=== PATIENT | male | born 1965 | race Caucasian/White ===

== ENCOUNTER 2024-01-27 02:36 | Emergency (ER) | payer OTHER, MEDICAID ==
[~2024-01-27] VITALS: Ht 190.5 cm; Wt 108.9 kg
[2024-01-27 02:46] VITALS: BP 154/82
[2024-01-27 03:45] VITALS: PULSE 82
[2024-01-27] MEDS ORDERED: DexAMETHasone 4 MG TAB PO ONE (03:45)
[2024-01-27] MEDS ORDERED: DOXY-286 PO (03:54)
[2024-01-27] MEDS ORDERED: DEX4T PO (03:54)
[2024-01-27] MEDS ORDERED: ALBUAER3 IN (03:54)
[2024-01-27 03:59] LABS: Base Excess 0.9 mmol/L (-2.0-2.0)
[2024-01-27] MEDS: ALBUTEROL SULF 2.5 MG/0.5ML(0.5%) NEB SOLN NEB ONE (04:02)
[2024-01-27] MEDS: BUDESONIDE (INHALATION) 0.5 MG/2 ML NEB NEB ONE (04:02)
[2024-01-27] MEDS: IPRATROPIUM BROM 0.5 MG/2.5ML INH SOL NEB ONE (04:02)
[2024-01-27 04:03] VITALS: RESP 20; O2SAT 94
[2024-01-27] MEDS: DOXYCYCLINE 100 MG TAB/CAP PO ONE (04:41)
[2024-01-27] MEDS: DexAMETHasone SOD PHOS 10MG/1ML VIAL INJ IM ONE (04:43)
== END 2024-01-27 04:49 | disposition home or self-care (01) ==
LOC: ER 02:36 → EDBD 02:36 → ER 04:49
DX: J44.1 Chronic obstructive pulmonary disease with (acute) exacerbation (principal)
CPT/HCPCS: 71045; 93005; 94640; 96372; 99283; J1100; J7644

== ENCOUNTER 2024-08-05 02:37 | Emergency (ER) | payer MEDICAID, OTHER ==
[~2024-08-05] VITALS: Ht 190.5 cm; Wt 104.5 kg
[~2024-08-05 02:37] MED LIST: ALBUAER3 IN; DEX4T PO; DOXY-286 PO
[2024-08-05 03:05] VITALS: PULSE 76
[2024-08-05 03:15] LABS: Basophils # (auto) 0.1 10 ^3/uL (0-0.2); Basophils % (auto) 0.9 % (0.0-2.0); Eosinophils # (auto) 0.4 10 ^3/uL (0-0.8); Eosinophils % (auto) 4.4 % (0.0-7.0); Hematocrit 48.1 % (41.0-53.0); Hemoglobin 16.8 g/dL (13.5-17.5); Mean Corpuscular Hemoglobin 30.7 pg (28.0-32.0); Mean Corpuscular Hgb Conc. 34.9 g/dL (32.0-36.0); Monocytes # (auto) 0.8 10 ^3/uL (0-1.3); Monocytes % (auto) 7.8 % (0.0-12.0); Neutrophils # (auto) 5.4 10 ^3/uL (1.6-8.6); Neutrophils % (auto) 55.9 % (37.0-80.0); Nucleated Red Blood Cells % 0.1 %; Platelet Count (auto) 325 10^3/uL (140-450); Red Blood Cells 5.47 10^6/uL (4.5-5.90); Red Cell Distribution Width 13.7 % (11.8-14.3); White Blood Cell 9.6 10^3/uL (4.4-10.8)
[2024-08-05 03:29] LABS: Alanine Aminotransferase 25 U/L (7-40); Albumin 4.7 g/dL (3.2-4.8); Alkaline Phosphatase 98 U/L (46-116); Anion Gap 6 (5-15); Aspartate Aminotransferase 16 U/L (13-40); BUN/Creatinine Ratio 11.5 (10.0-20.0); Bilirubin, Total 0.7 mg/dL (0.2-1.0); Blood Urea Nitrogen 14 mg/dL (9-23); Calcium 9.9 mg/dL (8.7-10.4); Carbon Dioxide 27 mmol/L (20-30); Chloride 104 mmol/L (98-107); Glucose 99 mg/dL (74-106); Potassium 4.4 mmol/L (3.5-5.1); Sodium 137 mmol/L (136-145); Total Protein 7.3 g/dL (5.7-8.2)
[2024-08-05 03:33] LABS: INR 1.01 (0.9-1.15); Partial Thromboplastin Time 31.1 SEC (24.5-34.5); Prothrombin Time 10.9 sec (9.3-11.8)
[2024-08-05] MEDS ORDERED: ALBUTEROL SULF 2.5 MG/0.5ML(0.5%) NEB SOLN NEB ONE (04:15)
[2024-08-05] MEDS: methylPREDNISolone SOD SUCC 125 MG/2 ML VL IV ONE (04:26)
[2024-08-05] MEDS: IPRATROPIUM BROM 0.5 MG/2.5ML INH SOL NEB ONE (04:34)
[2024-08-05 06:00] VITALS: BP 137/88; PULSE 76; RESP 14; O2SAT 93
[2024-08-05] MEDS ORDERED: AZIT-185 PO (06:08)
[2024-08-05] MEDS ORDERED: PRED20TA2 PO (06:08)
== END 2024-08-05 06:30 | disposition home or self-care (01) ==
LOC: EDBD 02:37 → ER 02:37
DX: J44.1 Chronic obstructive pulmonary disease with (acute) exacerbation (principal)
CPT/HCPCS: 36415; 71045; 80053; 83880; 84484; 85025; 85610; 85730; 93005; 94640; 96374; 99285; J2919

== ENCOUNTER 2025-08-27 00:53 | Emergency (ER) | payer MEDICAID ==
[~2025-08-27] VITALS: Ht 190.5 cm; Wt 90.0 kg
[~2025-08-27 00:53] MED LIST changes: +AZIT-185 PO; +PRED20TA2 PO
--- NOTE | 2025-08-27 01:12 | ED.PDOC ---
SOB-HPI HPI Comments 59-year-old male came to ER for shortness a breath. Patient does have history of COPD, on home oxygen at 3 L/min. Patient was supposed to go to sleep, when he felt sudden onset of shortness a breath with wheezing. Nebulizers taken offered no relief. EMS stated on arrival, patient was satting at 88% on oxygen. Patient received two breathing treatments in route and states good improvement of symptoms. Patient is saturating 94% at 3 L/min at time of evaluation. Patient is in no respiratory distress. Chief Complaint: Shortness a breath Time Seen by MD: 01:11 Reviewed notes: [employer] Notes Information Source: Patient, Emergency Med Personnel Mode of Arrival: EMS Severity: Moderate Timing: Minutes Duration: Since onset Context: At Rest PE Risk Factors: None History of: COPD Prehospital treatment: Breathing Tx Associated Signs and Symptoms: Wheeze Past Medical History PAST MEDICAL HISTORY: COPD Surgical History: Denies all surgeries Family History Family History: Reviewed,noncontributory to illness Social History Smoker: Non-Smoker Alcohol: Denies ETOH Use Drugs: Denies Drug Use Lives In: Home Constitutional: denies: chills, diaphoresis, fatigue, fever, malaise, sweats, weakness, others EENTM: denies: blurred vision, double vision, ear bleeding, ear discharge, ear drainage, ear pain, ear ringing, eye pain, eye redness, hearing loss, mouth pain, mouth swelling, nasal discharge, nose bleeding, nose congestion, nose pain, photophobia, tearing, throat pain, throat swelling, voice changes, others Respiratory: reports: SOB at rest, shortness of breath, wheezing; denies: cough, hemoptysis, orthopnea, SOB with excertion, stridor, others Cardiovascular: denies: chest pain, dizzy spells, diaphoresis, Dyspnea on exertion, edema, irregular heart beat, left arm pain, lightheadedness, palpitations, PND, syncope, others Gastrointestinal: denies: abdomen distended, abdominal pain, blood streaked bowels, constipated, diarrhea, dysphagia, difficulty swallowing, hematemesis, melena, nausea, poor appetite, poor fluid intake, rectal bleeding, rectal pain, vomiting, others Genitourinary: denies: burning, dysuria, flank pain, frequency, hematuria, incontinence, penile discharge, penile sore, pain, testicle pain, testicle swelling, urgency, others Neurological: denies: dizziness, fainting, headache, left sided numbness, left sided weakness, numbness, paresthesia, pre-existing deficit, right sided numbness, right sided weakness, seizure, speech problems, tingling, tremors, weakness, others Musculoskeletal: denies: back pain, gout, joint pain, joint swelling, muscle pain, muscle stiffness, neck pain, others Integumetry: denies: bruises, change in color, change in hair/nails, dryness, laceration, lesions, lumps, rash, wounds, others Allergic/Immunocompromised: denies: Difficulty Healing, Frequent Infections, Hives, Itching, others Hematologic/Lymphatic: denies: anemia, blood clots, easy bleeding, easy bruising, swollen glands, others Endocrine: denies: excessive hunger, excessive sweating, excessive thirst, excessive urination, flushing, intolerance to cold, intolerance to heat, unexplained weight gain, unexplained weight loss, others Psychiatric: denies: anxiety, bipolar disorder, depression, hopeless, panic disorder, schizophrenia, sleepless, suicidal, others Physical Exam General Appearance: Mild Distress (Patient was in some mild distress due to shortness a breath concerns at time of evaluation. Patient states good improvement of symptoms at time of evaluation.), Normal HEENT: Normal ENT Inspection, Pharynx Normal, TMs Normal Neck: Full Range of Motion, Non-Tender, Normal, Normal Inspection Respiratory: Chest Non-Tender, Lungs Clear, No Accessory Muscle Use, Respiratory Distress, Wheezing (Mild patchy wheezing appreciated in right middle lobe and right upper lobe.) Cardiovascular: No Edema, No JVD, No Murmur, No Gallop, Normal Peripheral Pulses, Regular Rate/Rhythm Breast Exam: Deferred Gastrointestinal: No Organomegaly, Non Tender, No Pulsatile Mass, Normal Bowel Sounds, Soft Genitalia: Deferred Pelvic: Deferred Rectal: Deferred Extremities: No calf tenderness, Normal capillary refill, Normal inspection, Normal range of motion, Non-tender, No pedal edema Musculoskeletal : Apperance: Normal Neurologic: Alert, No Motor Deficits, Normal Affect, Normal Mood, No Sensory Deficits Cerebellar Function: NOT DONE Reflexes: NOT DONE Skin: Dry, Normal Color, Warm Lymphatic: No Adenopathy EKG EKG : Pulse Rate (adult): 89 Cardiac Rhythm: NSR Was a procedure done? Was a procedure done?: No Differential Dx Differential Diagnosis: Asthma, Bronchitis, COPD, Pneumonia, Respiratory Distress X-Ray, Labs, Meds, VS Vital Signs Date Time Temp Pulse Resp B/P (MAP) Pulse Ox O2 Delivery O2 Flow Rate FiO2 08/27/25 02:02 88 08/27/25 01:14 89 08/27/25 00:57 89 08/27/25 00:53 98.5 89 20 130/83 95 98.5 X-Ray, Labs, Meds, VS Comment All studies performed the ED were evaluated by me personally. Imaging studies were unremarkable for any progressive concerns. X-ray was indicative of a COPD patient. Patient states he feels much more comfortable and would like to go home. Advised patient follow up with his primary care provider for discussions related to today's visit. Time of 1ST Reevaluation: 02:24 Reevaluation 1ST: Improved Consultation: PCP Patient Education/Counseling: Diagnosis, Treatment Family Education/Counseling: Diagnosis, Treatment, No Family Present SEPSIS Sepsis Screen Recent Procedure: No On Antibiotic Therapy: No Respiratory Rate >20: No Heart Rate >90: No Temp<36 C (96.8 F) or >38.3 C: No SBP <90 or MAP <65 mmHG: No New Acute Mental Status Change: No Is the patient on CPAP, BIPAP,: No Physician Orders Chest Portable (08/27/25 01:01) Vital Signs Date Time Temp Pulse Resp B/P (MAP) Pulse Ox O2 Delivery O2 Flow Rate FiO2 08/27/25 02:02 88 08/27/25 01:14 89 08/27/25 00:57 89 08/27/25 00:53 98.5 89 20 130/83 95 98.5 Departure 1 Departure Time of Disposition: : Impression: Primary Impression: COPD exacerbation Disposition: HOME / SELF CARE / HOMELESS Condition: Stable Additional Instructions: Advised patient follow up with his primary care provider for discussions related to today's visit. e-Prescriptions Budesonide-Formoterol Fumarate (Budesonide/Formoterol Fum 80-4.5 Mcg/Act) 1 Aer Aer 2 PUFF IN BID, #1 AER Prov: CAMILO BREAUX PAC 08/27/25 Discharged With: Self, Friend Critical Care Note Critical Care Time?: No Stability Stability form required: No Heart Score Heart Score: Heart Score Response (Comments) Value History Slightly Suspicious 0 EKG Normal 0 Age 45-64 1 Risk Factors 1 or 2 risk factors 1 Troponin Normal limit 0 Total 2 I personally scribed for CAMILO BREAUX PAC ([facility] [employer]) on 08/27/25 at 01:12. Electronically submitted by Davie Stephens ([email or web address]). I personally scribed for CAMILO BREAUX PAC ([facility]) on 08/27/25 at 01:14. Electronically submitted by Davie Stephens ([email or web address]). CAMILO BREAUX PAC Aug 27, 2025 01:12
[2025-08-27 01:25] VITALS: PULSE 87; RESP 24; O2SAT 94
--- NOTE | 2025-08-27 01:29 | DVH ---
CHEST RADIOGRAPH Indication: Shortness of breath Technique: Single frontal view of the chest was obtained COMPARISON: XY CHEST PORTABLE on DOS: 08/05/24, XY CHEST PORTABLE on DOS: 01/27/24 FINDINGS: Lines and Tubes: None Lungs: Mild diffuse increased prominence of the pulmonary vasculature. No evidence of focal consolida tion. Pleura: No effusion. No pneumothorax. Cardiomediastinal contours: Unremarkable Bones: Unremarkable IMPRESSION: 1. Mild pulmonary vascular congestion.
--- NOTE | 2025-08-27 01:31 | ECG ---
[facility] Test Date: 2025-08-27 Test Time: 00:57:06 Pat Name: PB CORTEZ Department: [facility] ED Patient ID: [id number] Room: Gender: M Employment Attorney: GREGORIO : 1965 Requested By: CAMILO BREAUX Order Number: [id number] Reading MD: Darien Middleton Measurements Intervals [place] Rate: 89 P: 95 MN: 166 QRS: 71 QRSD: 106 T: 71 QT: 428 QTc: 521 Interpretive Statements Sinus rhythm Borderline ST depression, lateral leads Prolonged QT interval Electronically Signed On 09-02-2025 21:45:32 PDT by Darien Middleton Please click the below link to view image of tracing.
[2025-08-27 01:50] VITALS: TEMP 97.8
[2025-08-27] MEDS ORDERED: BUDE1AER5 IN (02:27)
[2025-08-27 03:10] VITALS: BP 136/95; PULSE 89; RESP 27; O2SAT 96
== END 2025-08-27 03:50 | disposition home or self-care (01) ==
LOC: ER 00:53 → EDBD 00:53 → ER 03:50
DX: J44.1 Chronic obstructive pulmonary disease with (acute) exacerbation (principal); Z99.81 Dependence on supplemental oxygen
CPT/HCPCS: 71045; 93005; 96374; 99285; J1100